=== PATIENT | female | born 1960 | race Two or more races ===

== ENCOUNTER 2022-02-18 11:51 | Emergency (ER) | payer MEDICARE, MEDICAID ==
[~2022-02-18] VITALS: Ht 157.5 cm; Wt 71.4 kg
[2022-02-18 13:54] VITALS: BP 165/115
[2022-02-18] MEDS ORDERED: CEPH-510 PO ×2 (16:22→16:30)
== END 2022-02-18 16:28 | disposition home or self-care (01) ==
LOC: ER 11:51
DX: L03.211 Cellulitis of face (principal)

== ENCOUNTER 2023-09-21 07:51 | Inpatient (IN) | payer BC, MEDICAID ==
[~2023-09-21] VITALS: Ht 160 cm; Wt 67.2 kg
[~2023-09-21 07:51] MED LIST: CEPH-510 PO; DICL1GEL59 EX; ERGO1CAP12 PO; ESOM40CA83 PO; IBAN1TAB2 PO; NAP500T PO
[2023-09-21] MEDS: HYDROcodone-ACET 5/325MG TAB PO ONE (10:26)
[2023-09-21 10:36] LABS: Urine Bacteria FEW /hpf (None Seen); Urine Blood 2+ /uL (Negative); Urine Budding Yeast MODERATE /hpf (None Seen); Urine Clarity Turbid (Clear); Urine Mucus FEW (None Seen); Urine Protein, UAD TRACE (Negative); Urine Specific Gravity 1.012 (1.001-1.035); Urine Urobilinogen Normal (Negative); Urine WBC 3 /hpf (0 - 5)
[2023-09-21 10:40] VITALS: PULSE 99; RESP 30; O2SAT 95
[2023-09-21 10:40] LABS: Urine Color STRAW (Yellow)
[2023-09-21 11:21] LABS: Basophils # (auto) 0 10 ^3/uL (0-0.2); Basophils % (auto) 0.7 % (0.0-2.0); Eosinophils # (auto) 0.1 10 ^3/uL (0-0.8); Eosinophils % (auto) 1.4 % (0.0-7.0); Hematocrit 41.5 % (36.0-46.0); Hemoglobin 13.8 g/dL (12.2-16.2); Lymphocytes # (auto) 1.1 10 ^3/uL (0.4-5.4); Lymphocytes % (auto) 15.9 % (10.0-50.0); Mean Corpuscular Hemoglobin 25.9 pg (28.0-32.0); Mean Corpuscular Hgb Conc. 33.2 g/dL (32.0-36.0); Monocytes # (auto) 0.3 10 ^3/uL (0-1.3); Monocytes % (auto) 4.9 % (0.0-12.0); Neutrophils # (auto) 5.4 10 ^3/uL (1.6-8.6); Neutrophils % (auto) 77.1 % (37.0-80.0); Nucleated Red Blood Cells % 0.1 %; Red Blood Cells 5.32 10^6/uL (4.0-5.20); Red Cell Distribution Width 15.4 % (11.8-14.3)
[2023-09-21] MEDS ORDERED: DOCUSATE SOD 100 MG CAP PO PRN (11:30)
[2023-09-21] MEDS ORDERED: NITROGLYCERIN 0.4 MG SL TAB SL PRN (11:30)
[2023-09-21 11:40] LABS: INR 0.97 (0.9-1.15); Prothrombin Time 10.3 sec (9.3-11.8)
[2023-09-21 11:52] LABS: Alanine Aminotransferase 12 U/L (7-40); Albumin 4.2 g/dL (3.2-4.8); Alkaline Phosphatase 55 U/L (46-116); Anion Gap 6 (5-15); Aspartate Aminotransferase 12 U/L (13-40); BUN/Creatinine Ratio 10.8 (10.0-20.0); Bilirubin, Total 0.7 mg/dL (0.2-1.0); Blood Urea Nitrogen 10 mg/dL (9-23); Calcium 9.6 mg/dL (8.7-10.4); Carbon Dioxide 29 mmol/L (20-30); Chloride 110 mmol/L (98-107); Glucose 97 mg/dL (74-106); Potassium 3.3 mmol/L (3.5-5.1); Sodium 145 mmol/L (136-145)
[2023-09-21 11:53] LABS: Total Protein 7.1 g/dL (5.7-8.2)
[2023-09-21] MEDS: ASPirin 81 mg TAB PO ONE (11:54)
[2023-09-21] MEDS: SODIUM CHLORIDE 0.9% 1,000 ML IV SCH (11:54)
[2023-09-21 12:35] LABS: Magnesium 2.2 mg/dL (1.6-2.6)
[2023-09-21 12:37] LABS: Phosphorus 3.1 mg/dL (2.4-5.1)
[2023-09-21] MEDS: MORPHINE SULFATE INJ 2 MG/ml SYRG IV PRN (14:25)
[2023-09-21] MEDS: POTASSIUM EFFERVESENT TAB 25 MEQ PO ONE (14:51)
[2023-09-21 17:33] VITALS: BP 156/89; PULSE 74; RESP 18; TEMP 98.6; O2SAT 93
[2023-09-21 18:55] VITALS: PULSE 74; RESP 18; O2SAT 93
[2023-09-21 20:00] VITALS: PULSE 68; PULSE 87; RESP 20; O2SAT 95
[2023-09-21 21:00] VITALS: BP 150/87; PULSE 82; RESP 20; TEMP 98.1; O2SAT 91
[2023-09-21] MEDS: ENOXAPARIN SOD 100 MG/1 ML SYRINGE SC SCH ×2 (21:40→23:31)
[2023-09-21] MEDS: METOPROLOL TARTRATE 25 MG TAB PO SCH (21:49)
[2023-09-22] VITALS (8 sets, daily range): BP systolic 126–158; BP diastolic 80–113; PULSE 73–96; RESP 20–21; TEMP 97.7–99.7; O2SAT 95–100
[2023-09-22 06:47] LABS: Alanine Aminotransferase 12 U/L (7-40); Alkaline Phosphatase 56 U/L (46-116); Anion Gap 8 (5-15); Aspartate Aminotransferase 15 U/L (13-40); Blood Urea Nitrogen 8 mg/dL (9-23); Calcium 9.2 mg/dL (8.7-10.4); Carbon Dioxide 25 mmol/L (20-30); Chloride 111 mmol/L (98-107); Glucose 130 mg/dL (74-106); Potassium 3.4 mmol/L (3.5-5.1); Sodium 144 mmol/L (136-145)
[2023-09-22 06:48] LABS: Albumin 3.8 g/dL (3.2-4.8); Bilirubin, Total 1.1 mg/dL (0.2-1.0); Total Protein 6.7 g/dL (5.7-8.2)
[2023-09-22 07:01] LABS: Basophils # (auto) 0 10 ^3/uL (0-0.2); Basophils % (auto) 0.4 % (0.0-2.0); Eosinophils # (auto) 0.1 10 ^3/uL (0-0.8); Eosinophils % (auto) 0.8 % (0.0-7.0); Lymphocytes # (auto) 1.6 10 ^3/uL (0.4-5.4); Monocytes # (auto) 0.3 10 ^3/uL (0-1.3); Nucleated Red Blood Cells % 0.1 %
[2023-09-22 07:03] LABS: Hemoglobin 13.5 g/dL (12.2-16.2); Lymphocytes % (auto) 18.2 % (10.0-50.0); Mean Corpuscular Hemoglobin 25.7 pg (28.0-32.0); Mean Corpuscular Hgb Conc. 32.9 g/dL (32.0-36.0); Monocytes % (auto) 3.9 % (0.0-12.0); Neutrophils # (auto) 6.8 10 ^3/uL (1.6-8.6); Neutrophils % (auto) 76.7 % (37.0-80.0); Red Blood Cells 5.26 10^6/uL (4.0-5.20); Red Cell Distribution Width 15.2 % (11.8-14.3); White Blood Cell 8.8 10^3/uL (4.4-10.8)
[2023-09-22] MEDS: ASPirin 81 mg TAB PO SCH (10:10)
[2023-09-22] MEDS: ENOXAPARIN SOD 80 MG/0.8ML SYRINGE SC SCH (10:11)
[2023-09-22] MEDS ORDERED: ACETAMINOPHEN 325 MG TAB PO PRN (11:30)
[2023-09-22] MEDS: ONDANSETRON HCL 4 MG/2 ML VIAL IV PRN (13:34)
[2023-09-22] MEDS: hydrALAZINE HCL 20 MG/ML VL IV PRN (13:34)
[2023-09-22] MEDS: HYDROcodone-ACET 5/325MG TAB PO PRN (14:53)
[2023-09-22] MEDS: FUROSEMIDE 40 MG/4 ML VIAL IV ONE (14:53)
[2023-09-22] MEDS: EMPAGLIFLOZIN 10 MG TAB PO SCH (16:18)
[2023-09-22] MEDS ORDERED: ASPI81CH59 PO (17:22)
[2023-09-22] MEDS ORDERED: POTA-228 PO (17:22)
[2023-09-22] MEDS ORDERED: METO-289 PO (17:22)
[2023-09-22] MEDS ORDERED: MULT-1072 PO (17:22)
[2023-09-22] MEDS ORDERED: PRAV20TA3 PO (17:22)
[2023-09-22] MEDS ORDERED: EZET10TA22 PO (17:22)
[2023-09-22] MEDS ORDERED: OLME40TA78 PO (17:22)
[2023-09-22] MEDS ORDERED: PREG150C PO (17:22)
[2023-09-22] MEDS ORDERED: CELE200C PO (17:22)
[2023-09-22] MEDS: SPIRONOLACTONE 25 MG TAB PO SCH (18:02)
[2023-09-22 19:11] LABS: Alanine Aminotransferase 12 U/L (7-40); Alkaline Phosphatase 56 U/L (46-116); Anion Gap 9 (5-15); Aspartate Aminotransferase 20 U/L (13-40); BUN/Creatinine Ratio 9.8 (10.0-20.0); Bilirubin, Total 1.2 mg/dL (0.2-1.0); Blood Urea Nitrogen 8 mg/dL (9-23); Calcium 9.4 mg/dL (8.7-10.4); Carbon Dioxide 28 mmol/L (20-30); Chloride 107 mmol/L (98-107); Glucose 108 mg/dL (74-106); Potassium 3.3 mmol/L (3.5-5.1); Sodium 144 mmol/L (136-145); Total Protein 7.3 g/dL (5.7-8.2)
[2023-09-22] MEDS: SACUBITRIL-VALSARTAN 24mg/26mg TAB PO SCH (21:16)
[2023-09-22] MEDS: ATORVASTATIN 20 MG TAB PO SCH (21:16)
[2023-09-23] VITALS (11 sets, daily range): BP systolic 117–153; BP diastolic 71–100; PULSE 67–104; RESP 12–24; TEMP 98.5–99.3; O2SAT 93–98
[2023-09-23] MEDS: FUROSEMIDE 40 MG/4 ML VIAL IV SCH (06:31)
[2023-09-23 06:36] LABS: Basophils # (auto) 0 10 ^3/uL (0-0.2); Eosinophils # (auto) 0 10 ^3/uL (0-0.8); Hemoglobin 12.4 g/dL (12.2-16.2); Mean Corpuscular Hgb Conc. 33.6 g/dL (32.0-36.0); Mean Corpuscular Volume 77.4 fL (80.0-100.0); Monocytes # (auto) 0.4 10 ^3/uL (0-1.3); White Blood Cell 6.8 10^3/uL (4.4-10.8)
[2023-09-23 06:41] LABS: Basophils % (auto) 0.6 % (0.0-2.0); Eosinophils % (auto) 0.4 % (0.0-7.0); Lymphocytes % (auto) 14.9 % (10.0-50.0); Monocytes % (auto) 6.3 % (0.0-12.0); Neutrophils # (auto) 5.3 10 ^3/uL (1.6-8.6); Neutrophils % (auto) 77.8 % (37.0-80.0); Red Blood Cells 4.78 10^6/uL (4.0-5.20); Red Cell Distribution Width 15.1 % (11.8-14.3)
[2023-09-23 06:44] LABS: Calcium 9.2 mg/dL (8.7-10.4); Chloride 109 mmol/L (98-107); Potassium 2.9 mmol/L (3.5-5.1); Sodium 144 mmol/L (136-145)
[2023-09-23 06:45] LABS: Anion Gap 5 (5-15); Carbon Dioxide 30 mmol/L (20-30)
[2023-09-23 06:50] LABS: Glucose 105 mg/dL (74-106)
[2023-09-23 06:51] LABS: BUN/Creatinine Ratio 11.4 (10.0-20.0); Blood Urea Nitrogen 9 mg/dL (9-23); LDL Cholesterol 106 mg/dL (< 100); Triglycerides 92 mg/dL (< 150)
[2023-09-23 06:53] LABS: Cholesterol 176 mg/dL (< 200); HDL Cholesterol 54 mg/dL (40-59)
[2023-09-23] MEDS: POTASSIUM EFFERVESENT TAB 25 MEQ PO ONE ×3 (08:36→17:30)
[2023-09-23] MEDS: POTASSIUM CHLORIDE 40 MEQ, LIDOCAINE 1% (LOCAL ANESTH.) 4 ML in SODIUM CHL 0.9% 250 ML IV ONE (10:35)
[2023-09-23] MEDS: IODIXANOL 320MG/ML 100ML BTL IV ONE (12:33)
[2023-09-23] MEDS: HEPARIN IN NS 1000Units/500mL 1,500 ML ONE (12:33)
[2023-09-23] MEDS: ANGIOMAX 250 MG VIAL IV ONE (12:45)
[2023-09-23] MEDS: LIDOCAINE 2%HCL (LOCAL ANESTH.) INJ 20ML MDV ONE (12:45)
[2023-09-23] MEDS: MIDAZOLAM HCL 2MG/2ML 2ml VIAL (1mg/ml) ONE (12:45)
[2023-09-23] MEDS: HEPARIN SODIUM (PORCINE) 5000 UNITS/ML 1ML VIAL ONE (12:45)
[2023-09-23] MEDS: fentaNYL CITRATE 100 MCG/2 ML VL ONE (12:45)
[2023-09-23] MEDS: VERAPAMIL 2.5MG/ML INJ 2ML VIAL IV ONE (12:45)
[2023-09-23] MEDS: SODIUM CHL 0.9% 0 ML ONE (12:45)
[2023-09-23 18:38] LABS: Basophils # (auto) 0 10 ^3/uL (0-0.2); Basophils % (auto) 0.7 % (0.0-2.0); Eosinophils # (auto) 0 10 ^3/uL (0-0.8); Eosinophils % (auto) 0.2 % (0.0-7.0); Hematocrit 44.3 % (36.0-46.0); Hemoglobin 14.5 g/dL (12.2-16.2); Lymphocytes # (auto) 0.9 10 ^3/uL (0.4-5.4); Lymphocytes % (auto) 14.6 % (10.0-50.0); Mean Corpuscular Hemoglobin 25.5 pg (28.0-32.0); Mean Corpuscular Hgb Conc. 32.6 g/dL (32.0-36.0); Mean Corpuscular Volume 78.2 fL (80.0-100.0); Monocytes # (auto) 0.3 10 ^3/uL (0-1.3); Monocytes % (auto) 5.3 % (0.0-12.0); Neutrophils % (auto) 79.2 % (37.0-80.0); Nucleated Red Blood Cells % 0.1 %; Red Blood Cells 5.67 10^6/uL (4.0-5.20); Red Cell Distribution Width 15.3 % (11.8-14.3); White Blood Cell 6.3 10^3/uL (4.4-10.8)
[2023-09-23 18:55] LABS: Alanine Aminotransferase 11 U/L (7-40); Albumin 4.2 g/dL (3.2-4.8); Alkaline Phosphatase 58 U/L (46-116); Anion Gap 11 (5-15); Aspartate Aminotransferase 14 U/L (13-40); BUN/Creatinine Ratio 9.3 (10.0-20.0); Blood Urea Nitrogen 9 mg/dL (9-23); Calcium 9.3 mg/dL (8.7-10.4); Carbon Dioxide 26 mmol/L (20-30); Chloride 107 mmol/L (98-107); Glucose 103 mg/dL (74-106); Potassium 3.3 mmol/L (3.5-5.1); Sodium 144 mmol/L (136-145)
[2023-09-23 18:56] LABS: Bilirubin, Total 1.6 mg/dL (0.2-1.0); Total Protein 7.7 g/dL (5.7-8.2)
[2023-09-23] MEDS ORDERED: APIXABAN 5 MG TAB PO SCH (22:00)
[2023-09-24] MEDS ORDERED: ENOXAPARIN SOD 40 MG/0.4 ML SYRINGE SC SCH (10:00)
== END 2023-09-23 20:05 | disposition left against medical advice (07) | DRG 286 ==
LOC: ER 07:51 → TELE 11:22 → TELE-EAST 17:33
PROVIDERS: ADMIT Internal Medicine Geriatric Medicine; ATTEND Internal Medicine Geriatric Medicine
PROC: 4A023N7 Measurement of Cardiac Sampling and Pressure, Left Heart, Percutaneous Approach (ICD-10-PCS; principal; 2023-09-23)
PROC: B211YZZ Fluoroscopy of Multiple Coronary Arteries using Other Contrast (ICD-10-PCS; 2023-09-23)
PROC: B215YZZ Fluoroscopy of Left Heart using Other Contrast (ICD-10-PCS; 2023-09-23)
DX: I11.0 Hypertensive heart disease with heart failure (principal); I50.21 Acute systolic (congestive) heart failure; I69.354 Hemiplegia and hemiparesis following cerebral infarction affecting left non-dominant side; I25.10 Atherosclerotic heart disease of native coronary artery without angina pectoris; Z53.29 Procedure and treatment not carried out because of patient's decision for other reasons; E66.9 Obesity, unspecified; E78.5 Hyperlipidemia, unspecified; E87.6 Hypokalemia; G89.4 Chronic pain syndrome; I49.1 Atrial premature depolarization; I42.8 Other cardiomyopathies; I42.0 Dilated cardiomyopathy; Z79.899 Other long term (current) drug therapy; Z68.26 Body mass index [BMI] 26.0-26.9, adult; W18.39XA Other fall on same level, initial encounter; Y93.89 Activity, other specified; Y92.89 Other specified places as the place of occurrence of the external cause; Y99.8 Other external cause status; I48.0 Paroxysmal atrial fibrillation
CPT/HCPCS: 36415; 70450; 70551; 71045; 71046; 71101; 80048; 80053; 80061; 81001; 83036; 83735; 83880; 84100; 84443; 84484; 85025; 85379; 85610; 86850; 86900; 86901; 93005; 93306; 93458; 93886; 99152; G0378; J2001; J2250; J2405; Q9967